=== PATIENT | female | born 1990 | race Caucasian/White ===

== ENCOUNTER 2016-05-17 17:12 | Emergency (ER) | payer OTHER, MEDICAID ==
--- NOTE | 2016-05-17 17:48 | EDPHY ---
H & P Time Seen by Provider: 05/17/16 17:26 HPI/ROS: CHIEF COMPLAINT: Abdominal pain HISTORY OF PRESENT ILLNESS: Patient is a 26-year-old female who presents to the emergency department with ongoing abdominal issues. Patient has been worked up with MRI and multiple visits. She subsequently had a scope by [facility] on Friday. Since that time she has had cramping. She initially had some slight rectal bleeding but this is improved. She was concerned because a regular medication was not resolving her cramping. She called the nurse advisor to come to the emergency department. Patient denies nausea or vomiting. She is mildly constipated with no diarrhea. No fevers or chills. No distension REVIEW OF SYSTEMS: My complete review of systems is negative except as mentioned in the HPI. Past Medical/Surgical History: Includes IBS, abdominal issues Past surgical history: Tonsillectomy, cholecystectomy Smoking Status: Never smoked Physical Exam: Vitals noted. Afebrile. 111/67, 66, 18, 36.6 GENERAL: Well-appearing, in no acute distress, alert. HEENT: Eyes normal to inspection, normal pharynx, no signs of dehydration. NECK: No thyromegaly, no lymphadenopathy, supple. RESPIRATORY: Clear to auscultation bilaterally, no rales, rhonchi or wheezing. CVS: Regular rate and rhythm, no rubs, murmurs, or gallops. ABDOMEN: Soft, nondistended, no organomegaly. Patient describes minimal mid abdominal tenderness palpation. No rebound or guarding BACK: Normal to inspection, no CVA tenderness. SKIN: Normal color, no rash, warm, dry. No pallor. EXTREMITIES: No pedal edema, no calf tenderness, no Homans sign or cords, no joint swelling. NEURO/PSYCH: Alert and oriented, normal mood and affect, normal motor sensory exam. Constitutional: Initial Vital Signs Temperature (C) 36.6 C 05/17/16 17:14 Heart Rate 66 05/17/16 17:14 Respiratory Rate 18 05/17/16 17:14 Blood Pressure 111/67 05/17/16 17:14 O2 Sat (%) 98 05/17/16 17:14 O2 Delivery Mode Room Air Allergies/Adverse Reactions: dicyclomine HCl [From Bentyl] Allergy (Severe, Verified 05/17/16 17:20) "throat closes up" milk Allergy (Severe, Verified 05/17/16 17:19) Anaphylaxis tetracycline Allergy (Intermediate, Verified 05/17/16 17:20) rash,vomiting emycin Allergy (Intermediate, Uncoded 05/17/16 17:20) rash,vomiting Home Medications: Medication Instructions Recorded EPINEPHRINE [EPIPEN] 0.3 mg IJ 05/17/16 Hydrocodone/APAP 5/325 [[place] 1 - 2 tab PO Q4 #13 tab 05/17/16 5/325 (RX)] Hyoscyamine 0.15 mg PO 05/17/16 Montelukast Sodium [Singulair 4 mg 4 mg PO 05/17/16 (*)] Veramist 05/17/16 Medical Decision Making ED Course/Re-evaluation: In the emergency department I discussed possible etiologies with the patient. I discussed diagnostic options. This included CT imaging and ultrasound. At this time I do not feel she has a perforation. She has normal vital signs and is afebrile. Her abdominal exam is normal. I discussed the possibility of other on suspected entities such as appendicitis or obstruction. She would prefer not having imaging at this time. I discussed warnings with her. She will return with worsening symptoms. Differential Diagnosis: My differential includes but is not limited to perforation, obstruction, colitis , appendicitis Departure - Departure Disposition: Home, Routine, Self-Care Clinical Impression: Abdominal pain Qualifiers: Abdominal location: generalized Qualified Code(s): R10.84 - Generalized abdominal pain Condition: Good Instructions: Abdominal Pain (ED) Additional Instructions: Follow-up with your physician Dr. Tee. Return with increasing pain, fever , vomiting or any other concerns. Referrals: NONE *PRIMARY CARE P,. [Primary Care Provider] - As per Instructions Dr. Randal [Other] - As per Instructions Prescriptions: Hydrocodone/APAP 5/325 [[place] 5/325 (RX)] 1 - 2 tab PO Q4 #13 tab
[2016-05-17 18:01] VITALS: BP 97/62; PULSE 65; RESP 20; TEMP 98.6; O2SAT 96
== END 2016-05-17 18:02 | disposition home or self-care (01) ==
DX: R10.84 Generalized abdominal pain (principal); Z90.49 Acquired absence of other specified parts of digestive tract

== ENCOUNTER 2017-02-07 09:46 | Emergency (ER) | payer MEDICAID, OTHER ==
[2017-02-07 10:00] VITALS: RESP 16; TEMP 97.5
[2017-02-07] MEDS ORDERED: ONDANSETRON DISINTEGRATING 4 MG TAB PO ONE (10:02)
[2017-02-07] MEDS ORDERED: NS 1,000 ML IV ONE (10:15)
[2017-02-07 10:22] LABS: % IMMATURE GRANULYOCYTES 0.3 % (0.0-1.1); ABSOLUTE IMMATURE GRANULOCYTES 0.05 10^3/uL (0.00-0.10); ADD DIFF? NO; ADD MORPH? NO; ADD SCAN? NO; ATYPICAL LYMPHOCYTE FLAG 0 (0-99); FRAGMENT RBC FLAG 0 (0-99); HEMATOCRIT 42.5 % (38.0-47.0); HEMOGLOBIN 15.1 g/dL (12.6-16.3); LEFT SHIFT FLG 0 (0-99); LIPEMIA HEMOLYSIS FLAG 90 (0-99); MEAN CELL HEMOGLOBIN 34.8 pg (27.9-34.1); MEAN CELL HEMOGLOBIN CONCENTR. 35.5 g/dL (32.4-36.7); MEAN CELL VOLUME 97.9 fL (81.5-99.8); MEAN PLATELET VOLUME 10.6 fL (8.7-11.7); PLATELET CLUMPS FLAG 0 (0-99); PLATELET COUNT 191 10^3/uL (150-400); RED BLOOD CELL COUNT 4.34 10^6/uL (4.18-5.33); RED CELL DISTRIBUTION WIDTH 11.5 % (11.5-15.2)
[2017-02-07 10:34] LABS: ANION GAP 20 mEq/L (8-16); CALCIUM 9.7 mg/dL (8.5-10.4); CARBON DIOXIDE 21 mEq/l (22-31); CHLORIDE 104 mEq/L (97-110); CREATININE 0.7 mg/dL (0.6-1.0); GLOMERULAR FILTRATION RATE > 60; GLUCOSE 82 mg/dL (70-100); POTASSIUM 3.7 mEq/L (3.5-5.2); SODIUM 145 mEq/L (134-144)
--- NOTE | 2017-02-07 10:36 | EDPHY ---
HPI/HX/ROS/PE/MDM Narrative: CHIEF COMPLAINT:Vomiting HPI: The patient is a 26-year-old female with a history of IBS and "abdominal issues." She reports drinking several sugary cocktails last night for Thanksgiving. She has a history of vomiting the morning after similar episodes. She tried eating a spoonful of sugar upon awakening this morning, which usually helps her, but this did not alleviate the nausea. She denies hematemesis, fever, abdominal pain. This is similar to other episodes she has had in the past. REVIEW OF SYSTEMS: Aside from elements discussed in the HPI, a comprehensive 10-point review of systems was reviewed and is negative. PMH: IBS, history of cholecystectomy SOCIAL HISTORY: Denies drug abuse. . PHYSICAL EXAM: General:Patient is alert, in no acute distress. ENT:Eyes are normal to inspection. ENT inspection normal. Neck: Normal inspection. Full range of motion. Respiratory:No respiratory distress. Breath sounds normal bilaterally. Cardiovascular: Regular rate and rhythm. Strong peripheral pulses. Normal cap refill. Abdomen:The abdomen is nontender to palpation. There are no peritoneal signs. There are normal bowel sounds. Back: Normal to inspection. No tenderness to palpation. Skin: Normal color. No rash. Warm and dry. Extremities: Normal appearance. Full range of motion. Neuro: Oriented x3. Normal motor function. Normal sensory function. MDM: This patient presents with nausea and vomiting without fever or abdominal pain, likely related to alcohol abuse last night. She was treated with zofran and IVNS and feels much better. Her abdomen remains benign. I think she is safe for discharge home. I see no signs of ovarian torsion, appendicitis, sepsis, GI bleed. - Data Points Laboratory Results: Laboratory Results 02/07/17 10:15 02/07/17 10:15 02/07/17 02/07/17 02/07/17 10:15 10:15 10:15 WBC 14.74 10^3/uL H 10^3/uL (3.80-9.50) RBC 4.34 10^6/uL 10^6/uL (4.18-5.33) Hgb 15.1 g/dL g/dL (12.6-16.3) Hct 42.5 % % (38.0-47.0) MCV 97.9 fL fL (81.5-99.8) MCH 34.8 pg H pg (27.9-34.1) MCHC 35.5 g/dL g/dL (32.4-36.7) RDW 11.5 % % (11.5-15.2) Plt Count 191 10^3/uL 10^3/uL (150-400) MPV 10.6 fL fL (8.7-11.7) Neut % (Auto) 91.5 % H % (39.3-74.2) Lymph % (Auto) 5.6 % L % (15.0-45.0) [place] % (Auto) 2.4 % L % (4.5-13.0) Eos % (Auto) 0.1 % L % (0.6-7.6) Baso % (Auto) 0.1 % L % (0.3-1.7) Nucleat RBC Rel Count 0.0 % % (0.0-0.2) Absolute Neuts (auto) 13.49 10^3/uL H 10^3/uL (1.70-6.50) Absolute Lymphs (auto) 0.82 10^3/uL L 10^3/uL (1.00-3.00) Absolute Monos (auto) 0.35 10^3/uL 10^3/uL (0.30-0.80) Absolute Eos (auto) 0.01 10^3/uL L 10^3/uL (0.03-0.40) Absolute Basos (auto) 0.02 10^3/uL 10^3/uL (0.02-0.10) Absolute Nucleated RBC 0.00 10^3/uL 10^3/uL (0-0.01) Immature Gran % 0.3 % % (0.0-1.1) Immature Gran # 0.05 10^3/uL 10^3/uL (0.00-0.10) Sodium 145 mEq/L H mEq/L (134-144) Potassium 3.7 mEq/L mEq/L (3.5-5.2) Chloride 104 mEq/L mEq/L (97-110) Carbon Dioxide 21 mEq/l L mEq/l (22-31) Anion Gap 20 mEq/L H mEq/L (8-16) BUN 15 mg/dL mg/dL (7-23) Creatinine 0.7 mg/dL mg/dL (0.6-1.0) Estimated GFR > 60 Glucose 82 mg/dL mg/dL (70-100) Calcium 9.7 mg/dL mg/dL (8.5-10.4) Beta HCG, Qual NEGATIVE Medications Given: Discontinued Medications Sodium Chloride (Ns) 1,000 mls @ 0 mls/hr IV EDNOW ONE; Wide Open PRN Reason: Protocol Stop: 02/07/17 10:16 Last Admin: 02/07/17 10:26 Dose: 1,000 mls Ondansetron HCl (Zofran Odt) 4 mg PO EDNOW ONE Stop: 02/07/17 10:03 Last Admin: 02/07/17 10:07 Dose: 4 mg General Time Seen by Provider: 02/07/17 10:06 Initial Vital Signs: Initial Vital Signs Temperature (C) 36.4 C 02/07/17 09:54 Heart Rate 90 02/07/17 09:54 Respiratory Rate 16 02/07/17 09:54 Blood Pressure 109/72 02/07/17 09:54 O2 Sat (%) 100 02/07/17 09:54 O2 Delivery Mode Room Air Allergies/Adverse Reactions: dicyclomine HCl [From Bentyl] Allergy (Severe, Verified 02/07/17 09:52) "throat closes up" milk Allergy (Severe, Verified 02/07/17 09:52) Anaphylaxis tetracycline Allergy (Intermediate, Verified 02/07/17 09:52) rash,vomiting emycin Allergy (Intermediate, Uncoded 02/07/17 09:52) rash,vomiting celiac Allergy (Uncoded 02/07/17 09:52) Home Medications: Medication Instructions Recorded EPINEPHRINE [EPIPEN] 0.3 mg IJ 05/17/16 Hyoscyamine 0.15 mg PO 05/17/16 Montelukast Sodium [Singulair 4 mg 4 mg PO 05/17/16 (*)] Veramist 05/17/16 Albuterol Hfa Anes Only [Proair 02/07/17 Hfa Icu (*)] Citalopram 02/07/17 Ondansetron Odt [Zofran Odt] 4 mg PO Q4PRN PRN #10 tab 02/07/17 Zofran Odt 02/07/17 Departure - Departure Disposition: Home, Routine, Self-Care Clinical Impression: Nausea & vomiting Condition: Good Instructions: Ondansetron (By mouth), Acute Nausea and Vomiting (ED) Additional Instructions: Follow-up with your primary doctor within 72 hours. Return to the Emergency Department for worsening pain, fever, severe vomiting, change in character or severity of pain or other worsening of condition. Referrals: Sondra Rivers MD [Primary Care Provider] - As per Instructions Prescriptions: Ondansetron Odt [Zofran Odt] 4 mg PO Q4PRN PRN #10 tab PRN Reason: Nausea
[2017-02-07 11:19] VITALS: BP 108/66; PULSE 83; O2SAT 99
== END 2017-02-07 11:17 | disposition home or self-care (01) ==
LOC: CED 09:46
DX: R11.2 Nausea with vomiting, unspecified (principal); E86.9 Volume depletion, unspecified
CPT/HCPCS: 80048-PO; 84703-PO; 85025-PO

== ENCOUNTER 2017-03-08 08:57 | Emergency (ER) | payer OTHER ==
[2017-03-08 09:14] VITALS: RESP 16; TEMP 98.6; O2SAT 97
[2017-03-08 10:31] LABS: PLATELET COUNT 209 10^3/uL (150-400)
[2017-03-08] MEDS ORDERED: HYOSCYAMINE SULFATE 0.125 MG TAB PO ONE (11:20)
--- NOTE | 2017-03-08 11:23 | EDPHY ---
H & P Time Seen by Provider: 03/08/17 09:30 HPI/ROS: This patient complains of a 12 day history of diarrhea with greater than 3 episodes of loose watery stools per day. She has seen at [facility] by Dr. Calvert - professor of geology with diagnosis of irritable bowel syndrome. She had a normal colonoscopy May 2016 as well as normal upper endoscopy October of 2013. She had normal comprehensive metabolic panel performed on 03/06 as an outpatient workup. She has not tried any specific medications for this current episode. She reported that she has had some relief from hyoscyamine in the past but does not have an active script for this medication at this time. She requests blood work to rule out acute infection. She is accompanied by her who drove her here by private vehicle for evaluation ROS: No fevers or chills. No other constitutional symptoms except some increased fatigue recently. HEENT: Mild seasonal allergies with coryza. No other complaints Pulmonary: No shortness of breath or cough Cardiovascular: No chest pain or heart palpitations GI: She has been drinking more fluids due to the diarrhea. She reports diffuse crampy abdominal pain that is intermittent currently mild but at times moderate. She denies any bloody stools or mucus in her stools. No nausea or vomiting. : Last menstrual. Normal timing 1125 the no vaginal discharge. No dysuria. Integumentary: No skin rash Endocrine: No complaints Complete review of symptoms is otherwise negative. 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 General Appearance: Alert, no distress. Eyes: Pupils equal and round no pallor or injection. ENT, Mouth: Mucous membranes moist. Respiratory: There are no retractions, lungs are clear to auscultation. Cardiovascular: Regular rate and rhythm. Gastrointestinal: Hyperactive bowel sounds, soft, mild diffuse tenderness with no guarding or rebound. No organomegaly. Back: No CVA tenderness Neurological: GCS 15 Skin: Warm and dry, no rashes. Musculoskeletal: Neck is supple nontender. Extremities are symmetrical, full range of motion. Psychiatric: Mood and affect normal DIFFERENTIAL DIAGNOSIS: After history and physical exam differential diagnosis was considered for IBS, metabolic disarray, UTI, , doubt appendicitis Constitutional: Initial Vital Signs Temperature (C) 37 C 03/08/17 09:07 Heart Rate 92 03/08/17 09:07 Respiratory Rate 16 03/08/17 09:07 Blood Pressure 119/76 03/08/17 09:07 O2 Sat (%) 97 03/08/17 09:07 O2 Delivery Mode Room Air Allergies/Adverse Reactions: dicyclomine HCl [From Bentyl] Allergy (Severe, Verified 02/07/17 09:52) "throat closes up" milk Allergy (Severe, Verified 02/07/17 09:52) Anaphylaxis tetracycline Allergy (Intermediate, Verified 02/07/17 09:52) rash,vomiting erythromycin base Allergy (Verified 03/08/17 09:15) celiac Allergy (Uncoded 02/07/17 09:52) Home Medications: Medication Instructions Recorded EPINEPHRINE [EPIPEN] 0.3 mg IJ PRN 05/17/16 Veramist 05/17/16 Albuterol Hfa Anes Only [Proair PRN 02/07/17 Hfa Icu (*)] Ondansetron Odt [Zofran Odt] 4 mg PO Q4PRN PRN #10 tab 02/07/17 HYOSCYAMINE SULFATE [LEVSIN-SL] 0.125 - 0.25 mg SL Q6 PRN #20 03/08/17 tab.subl Pnv 29-1 Tablet 03/08/17 MDM/Departure - MDM Diagnostics: CBC is normal. Basic metabolic panel normal, test normal, ESR normal Medications Given: Discontinued Medications Hyoscyamine Sulfate (Levsin, Hyomax-Sl) 0.125 mg PO EDNOW ONE Stop: 03/08/17 11:21 Last Admin: 03/08/17 11:40 Dose: 0.125 mg ED Course/Re-evaluation: Levsin sublingual with improvement in cramping Discussion: Patient has benign-appearing labs. Given lack of focality to her exam, hyperactive bowel sounds history of IBS think that her current symptoms are attributable again to IBS without evidence of acute abdomen or other concerning findings. I counseled regarding this. We did send a stool study as she provide a stool sample with pending results. The plan is for her to use hyoscyamine if needed for cramping discomfort and Imodium for diarrhea as needed with plan to follow up with her professor of geology. She understands need to return emergency department should she have any significant worsening of her symptoms despite the plan. I reviewed the patient's lab results answered her questions prior to her discharge. - Depart Disposition: Home, Routine, Self-Care Clinical Impression: Acute diarrhea, Generalized abdominal cramping Condition: Good Instructions: Acute Diarrhea (ED) Additional Instructions: Diagnosis: 1. Acute diarrhea 2. Generalized abdominal cramping Your CBC, ESR and basic metabolic panel are normal today. Also your test is negative. Plan: Drink plenty fluids with a light diet until you feel improved Levsin for cramping Imodium for diarrhea if needed Your stool study should be back within the next 24 hr or so. Follow up with GI physician for any ongoing symptoms Return for any significant worsening despite the treatment plan Prescriptions: HYOSCYAMINE SULFATE [LEVSIN-SL] 0.125 - 0.25 mg SL Q6 PRN #20 tab.subl PRN Reason: abd. cramping Referrals: NONE *PRIMARY CARE P,. [Primary Care Provider] - As per Instructions
[2017-03-08 11:43] VITALS: BP 111/68; PULSE 66
== END 2017-03-08 11:42 | disposition home or self-care (01) ==
LOC: CED 08:57
DX: R19.7 Diarrhea, unspecified (principal); R10.84 Generalized abdominal pain
CPT/HCPCS: 80048-PO; 84703-PO; 85025-PO; 85652-PO

== ENCOUNTER → 2017-07-22 | Outpatient (CLI) | payer OTHER | LOC: CIMAGING 09:02 | PROVIDERS: ATTEND Family Medicine | DX: M25.561 Pain in right knee (principal); M25.562 Pain in left knee | CPT/HCPCS: 73565-PO ==

== ENCOUNTER → 2017-07-25 | Outpatient (CLI) | payer OTHER | LOC: FIMAGING 17:55 | PROVIDERS: ATTEND Family Medicine | DX: M25.561 Pain in right knee (principal); M25.861 Other specified joint disorders, right knee ==

== ENCOUNTER → 2017-08-21 | Outpatient (CLI) | payer OTHER ==
[~2017-08-21] MED LIST: GADOBUTROL 10 ML VIAL IVP ONE
== END ==
LOC: FIMAGING 08:11
PROVIDERS: ATTEND Family Medicine
DX: M79.604 Pain in right leg (principal); F41.1 Generalized anxiety disorder
CPT/HCPCS: A9585

== ENCOUNTER 2018-04-11 17:23 | Observation (INO) | payer OTHER ==
[2018-04-11] MEDS ORDERED: ONDANSETRON 4 MG/2 ML VIAL IVP ONE ×2 (17:53→19:26)
[2018-04-11] MEDS ORDERED: NS 1,000 ML IV ONE (17:53)
--- NOTE | 2018-04-11 18:00 | EDPHY ---
H & P Stated Complaint: Nausea and vomiting for a day, per pt ?Gastro - Personal History LMP (Females 10-55): Current Tetanus/Diphtheria Vaccine: Yes Current Tetanus Diphtheria and Acellular Pertussis (TDAP): Yes Tetanus Vaccine Date: 2018 - Medical/Surgical History Hx Asthma: Yes Hx Chronic Respiratory Disease: No Hx Diabetes: No Hx Cardiac Disease: No Hx Renal Disease: No Hx Cirrhosis: No Hx Alcoholism: No Hx HIV/AIDS: No Hx Splenectomy or Spleen Trauma: No Other PMH: "abdominal issues" IBS,celiac,anxiety. Surg-davian,tonsils - Social History Smoking Status: Never smoked Time Seen by Provider: 04/11/18 17:44 HPI/ROS: CHIEF COMPLAINT: Intractable vomiting HISTORY OF PRESENT ILLNESS: 28-year-old female , EDC 06/02/2018, in the ER via private vehicle complaining of intractable nausea and vomiting since 2:30 a.m. Today with intermittent abdominal cramping. She is passing bowel movements and gas as normal with no diarrhea. She has prior history of remote cholecystectomy. No appendectomy history. No fever or chills. No flu-like symptoms. No vaginal bleeding or discharge. No urinary abnormality. No back or flank pain. No myalgias. PRIMARY CARE PROVIDER: [facility] REVIEW OF SYSTEMS: 10 systems reviewed and negative with the exception of the elements mentioned in the history of present illness PAST MEDICAL & SURGICAL HISTORY: , [facility] 06/02/2018 SOCIAL HISTORY: Nonsmoker PHYSICAL EXAM (Prior to examination, patient consented to physical exam, hands were washed and my usual and customary physical exam procedures followed) 1) GENERAL: Well-developed, well-nourished, alert and oriented. Appears to be in no acute distress. 2) HEAD: Normocephalic, atraumatic 3) HEENT: Pupils equal, round, reactive to light bilaterally. Sclera anicteric. Nasopharynx, oropharynx, clear, no lesions. Dry mucous membranes. 4) NECK: Full range of motion, no meningeal signs. 5) LUNGS: Clear auscultation bilaterally, no wheezes, no rhonchi, no retractions. 6) HEART: Regular rate and rhythm, no murmur, no heave, no gallop. 7) ABDOMEN: Gravid. No guarding, no rebound, no focal tenderness, negative McBurney's, negative Villareal's, negative Rovsing's, negative peritoneal sign, unable to elicit abdominal pain on exam 8) MUSCULOSKELETAL: Moving all extremities, no focal areas of tenderness, no obvious trauma. No peripheral edema or discoloration. 9) BACK: No CVA tenderness, no midline vertebral tenderness, no fluctuance, no step-off, no obvious trauma, no visual or palpable abnormality. 10) SKIN: No rash, no petechiae. 11) Psychiatric: Patient is oriented X 3, there is no agitation. DIFFERENTIAL DIAGNOSIS: In no particular order including but not limited to threatened , acute gastroenteritis, acute appendicitis (Chaka Jeff) Constitutional: Initial Vital Signs Temperature (C) 36.4 C 04/11/18 17:29 Heart Rate 93 04/11/18 17:29 Respiratory Rate 16 04/11/18 17:29 Blood Pressure 99/73 L 04/11/18 17:29 O2 Sat (%) 96 04/11/18 17:29 O2 Delivery Mode Room Air Allergies/Adverse Reactions: dicyclomine HCl [From Bentyl] Allergy (Severe, Verified 04/11/18 23:12) "throat closes up" grass pollen-perennial rye, standar Allergy (Severe, Verified 04/11/18 23:12) milk Allergy (Severe, Verified 04/11/18 23:12) Anaphylaxis tetracycline Allergy (Intermediate, Verified 04/11/18 23:12) rash,vomiting erythromycin base Allergy (Verified 04/11/18 23:12) celiac Allergy (Uncoded 02/07/17 09:52) Home Medications: Medication Instructions Recorded EPINEPHRINE [EPIPEN] 0.3 mg IJ PRN 05/17/16 Albuterol Hfa Anes Only [Proair PRN 02/07/17 Hfa Icu (*)] Dha 04/11/18 Vitamin B-6 04/11/18 Vitamin D3 04/11/18 Medical Decision Making - Diagnostics Imaging Results: Imaging Impressions Obstetrics Ultrasound 04/11/18 17:54 Impression: 1. Living torrez in vertex presentation. 2. By LMP the gestational age is 32 weeks 4 days. 3. Anterior placenta is normal in appearance. Findings discussed with Chaka Jeff PAC at 18:46 hour, 04/11/2018. Images reviewed myself (Chaka Jeff) ED Course/Re-evaluation: 5:10 p.m.: Care of patient under supervision of secondary supervising physician Dr Hagan with whom I discussed case. 7:27 p.m.: Patient previously passed p.o,. challenge however she is now actively vomiting again. 8:57 p.m.: Re-evaluation, no complaints of abdominal pain however continued nausea and vomiting. Recommended admission for hydration which patient is agreeable with. Doubt acute surgical abdominal pathology in absence of abdominal pain, nonfocal abdominal exam. 9:00 p.m.: Consultation Dr. Harleen Kent on-call OBGYN who agrees to admit patient (Chaka Jeff) Other Provider: The patient was evaluated and managed by the Physician Toddler Guide. I discussed the patient's presentation and course with the midlevel provider with them and agree with the evaluation. My co-signature indicates that I have reviewed this chart and I agree with the findings and plan of care as documented. I am the secondary supervising physician. (Echo Hagan) - Data Points Laboratory Results: Laboratory Results 04/11/18 18:09 04/11/18 18:09 04/11/18 04/11/18 04/11/18 19:37 18:09 18:09 WBC 13.53 10^3/uL H 10^3/uL (3.80-9.50) RBC 4.24 10^6/uL 10^6/uL (4.18-5.33) Hgb 14.7 g/dL g/dL (12.6-16.3) Hct 42.3 % % (38.0-47.0) MCV 99.8 fL fL (81.5-99.8) MCH 34.7 pg H pg (27.9-34.1) MCHC 34.8 g/dL g/dL (32.4-36.7) RDW 13.2 % % (11.5-15.2) Plt Count 152 10^3/uL 10^3/uL (150-400) MPV 10.7 fL fL (8.7-11.7) Neut % (Auto) 95.5 % H % (39.3-74.2) Lymph % (Auto) 2.1 % L % (15.0-45.0) [place] % (Auto) 1.9 % L % (4.5-13.0) Eos % (Auto) 0.2 % L % (0.6-7.6) Baso % (Auto) 0.1 % L % (0.3-1.7) Nucleat RBC Rel Count 0.0 % % (0.0-0.2) Absolute Neuts (auto) 12.92 10^3/uL H 10^3/uL (1.70-6.50) Absolute Lymphs (auto) 0.28 10^3/uL L 10^3/uL (1.00-3.00) Absolute Monos (auto) 0.26 10^3/uL L 10^3/uL (0.30-0.80) Absolute Eos (auto) 0.03 10^3/uL 10^3/uL (0.03-0.40) Absolute Basos (auto) 0.01 10^3/uL L 10^3/uL (0.02-0.10) Absolute Nucleated RBC 0.00 10^3/uL 10^3/uL (0-0.01) Immature Gran % 0.2 % % (0.0-1.1) Immature Gran # 0.03 10^3/uL 10^3/uL (0.00-0.10) Sodium 135 mEq/L mEq/L (135-145) Potassium 3.7 mEq/L mEq/L (3.5-5.2) Chloride 106 mEq/L mEq/L (97-110) Carbon Dioxide 20 mEq/l L mEq/l (22-31) Anion Gap 9 mEq/L mEq/L (6-14) BUN 10 mg/dL mg/dL (7-23) Creatinine 0.7 mg/dL mg/dL (0.6-1.0) Estimated GFR > 60 Glucose 79 mg/dL mg/dL (70-100) Calcium 8.8 mg/dL mg/dL (8.5-10.4) Total Bilirubin 0.9 mg/dL mg/dL (0.1-1.4) Conjugated Bilirubin 0.3 mg/dL mg/dL (0.0-0.5) Unconjugated Bilirubin 0.6 mg/dL mg/dL (0.0-1.1) AST 28 IU/L IU/L (14-46) ALT 36 IU/L IU/L (9-52) Alkaline Phosphatase 134 IU/L H IU/L (38-126) Total Protein 6.7 g/dL g/dL (6.3-8.2) Albumin 3.7 g/dL g/dL (3.5-5.0) Lipase 147 IU/L IU/L (23-300) Beta HCG, Quant 97818.00 mIU/mL H mIU/mL (0.00-4.83) Urine Color YELLOW Urine Appearance CLEAR Urine pH 5.0 (5.0-7.5) Ur Specific [place] 1.025 (1.002-1.030) Urine Protein NEGATIVE (NEGATIVE) Urine Ketones 2+ H (NEGATIVE) Urine Blood NEGATIVE (NEGATIVE) Urine Nitrate NEGATIVE (NEGATIVE) Urine Bilirubin NEGATIVE (NEGATIVE) Urine Urobilinogen NEGATIVE EU EU (0.2-1.0) Ur Leukocyte Esterase 1+ H (NEGATIVE) Urine RBC 1-3 /hpf /hpf (0-3) Urine WBC 5-10 /hpf H /hpf (0-3) Ur Epithelial Cells 1+ /lpf /lpf (NONE-1+) Urine Mucus 3+ /lpf H /lpf (NONE-1+) Urine Glucose NEGATIVE (NEGATIVE) Medications Given: Calcium Carbonate (Tums) 500 mg PO TID PRN PRN Reason: Indigestion Stop: 10/08/18 23:01 Last Admin: 04/11/18 23:13 Dose: 500 mg Lactated Ringer's (Lr) 1,000 mls @ 1,000 mls/hr IV BOLUS ONE Stop: 04/12/18 00:29 Last Admin: 04/11/18 23:13 Dose: 1,000 mls Dextrose/Lactated Ringer's (D5w Lr) 1,000 mls @ 125 mls/hr IV CONT ASHOK Stop: 10/08/18 23:14 Last Admin: 04/12/18 00:17 Dose: 1,000 mls Promethazine HCl (Phenergan) 12.5 mg IVP Q6HRS PRN PRN Reason: Nausea/Vomiting, Can't Take PO Stop: 10/08/18 23:01 Last Admin: 04/11/18 23:12 Dose: 12.5 mg Discontinued Medications Sodium Chloride (Ns) 1,000 mls @ 0 mls/hr IV ONCE ONE PRN Reason: Wide Open Stop: 04/11/18 17:54 Last Admin: 04/11/18 18:04 Dose: 1,000 mls Ondansetron HCl (Zofran) 4 mg IVP EDNOW ONE Stop: 04/11/18 17:54 Last Admin: 04/11/18 18:04 Dose: 4 mg Ondansetron HCl (Zofran) 4 mg IVP EDNOW ONE Stop: 04/11/18 19:27 Last Admin: 04/11/18 19:29 Dose: 4 mg Ranitidine HCl (Zantac) 50 mg IVP EDNOW ONE Stop: 04/11/18 21:28 Last Admin: 04/11/18 21:29 Dose: 50 mg Departure - Departure Disposition: [facility] Inpatient Acute Clinical Impression: Intractable nausea and vomiting Qualifiers: Vomiting type: unspecified Qualified Code(s): R11.2 - Nausea with vomiting, unspecified Qualifiers: Weeks of gestation: 32 weeks Qualified Code(s): Z3A.32 - 32 weeks gestation of Condition: Fair
[2018-04-11 18:45] LABS: PLATELET COUNT 152 10^3/uL (150-400)
[2018-04-11] MEDS ORDERED: ONDANSETRON 4 MG/2 ML VIAL ONE (19:27)
[2018-04-11] MEDS ORDERED: RANITIDINE 50 MG/2 ML VIAL IVP ONE (21:27)
[2018-04-11] MEDS ORDERED: RANITIDINE 50 MG/2 ML VIAL ONE (21:28)
[2018-04-11 21:34] VITALS: BP 112/78
--- NOTE | 2018-04-11 22:57 | PDGENHP ---
History and Physical - Chief Complaint N/V - History of Present Illness 28 G1 at 32w4d presented to ED with N/V since 0200. Despite 1 L of NS and 2 doses of Zofran, was still vomiting. Has not vomited now since about 1930. Does feel hungry. 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 NO fever. no VB no LOF, no chest pain, no dyspnea. With her celiac disease - usually has loose stool, but has had more firm stool today. Has not been voiding much volume. Good FM. Has not felt any contractions. course has been uncomplicated. care has been with [facility]. labs: 13.3/38.7 plt 193 A pos Ab sc neg RPR - NR Rub Imm HBsAG neg HIV neg UDS neg UA and Ucx neg pap neg GC/Chl neg AFP neg Innatal neg 28 wk: 12.6/37.4 1 hr GTT 70 History Information - Allergies/Home Medication List Allergies/Adverse Reactions: dicyclomine HCl [From Bentyl] Allergy (Severe, Verified 04/11/18 17:28) "throat closes up" milk Allergy (Severe, Verified 04/11/18 17:28) Anaphylaxis tetracycline Allergy (Intermediate, Verified 04/11/18 17:28) rash,vomiting erythromycin base Allergy (Verified 04/11/18 17:28) celiac Allergy (Uncoded 02/07/17 09:52) Home Medications: EPINEPHRINE [EPIPEN] 0.3 mg IJ PRN 05/17/16 [Last Taken Unknown] Albuterol Hfa Anes Only [Proair Hfa Icu (*)] PRN 02/07/17 [Last Taken Unknown] I have personally reviewed and updated: family history, medical history, social history, surgical history Past Medical History: Celiac disease - Past Medical History asthma Additional medical history: severe dairy allergy - has epipen - Surgical History Reports: cholecystectomy (2016) Additional surgical history: tonsillectomy 1993 - Family History Additional family history: nonpertinent - Social History Smoking Status: Never smoked Alcohol Use: None Drug Use: None 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 [employer] Review of Systems Review of Systems: ROS: 10pt was reviewed & negative except for what was stated in HPI & below Physical Exam Physical Exam: Temp Pulse Resp BP Pulse Ox 36.8 C 69 16 112/78 100 04/11/18 21:31 04/11/18 21:31 04/11/18 21:31 04/11/18 21:31 04/11/18 21:31 Constitutional: appears nourished (nontoxic, but does not appear well), not in pain Eyes: PERRL, anicteric sclera, EOMI Ears, Nose, Mouth, Throat: moist mucous membranes, hearing normal, ears appear normal Cardiovascular: regular rate and rhythym Respiratory: no respiratory distress, no rales or rhonchi, clear to auscultation Gastrointestinal: normoactive bowel sounds, other (fundus c/w third trimester, NT) Genitourinary: no bladder fullness Skin: warm, normal color Musculoskeletal: full muscle strength Neurologic: AAOx3 Psychiatric: interacting appropriately, not anxious Lab Data & Imaging Review 04/11/18 18:09 04/11/18 18:09 WBC 13.53 10^3/uL (3.80-9.50) H 04/11/18 18:09 RBC 4.24 10^6/uL (4.18-5.33) 04/11/18 18:09 Hgb 14.7 g/dL (12.6-16.3) 04/11/18 18:09 Hct 42.3 % (38.0-47.0) 04/11/18 18:09 MCV 99.8 fL (81.5-99.8) 04/11/18 18:09 MCH 34.7 pg (27.9-34.1) H 04/11/18 18:09 MCHC 34.8 g/dL (32.4-36.7) 04/11/18 18:09 RDW 13.2 % (11.5-15.2) 04/11/18 18:09 Plt Count 152 10^3/uL (150-400) 04/11/18 18:09 MPV 10.7 fL (8.7-11.7) 04/11/18 18:09 Neut % (Auto) 95.5 % (39.3-74.2) H 04/11/18 18:09 Lymph % (Auto) 2.1 % (15.0-45.0) L 04/11/18 18:09 [place] % (Auto) 1.9 % (4.5-13.0) L 04/11/18 18:09 Eos % (Auto) 0.2 % (0.6-7.6) L 04/11/18 18:09 Baso % (Auto) 0.1 % (0.3-1.7) L 04/11/18 18:09 Nucleat RBC Rel Count 0.0 % (0.0-0.2) 04/11/18 18:09 Absolute Neuts (auto) 12.92 10^3/uL (1.70-6.50) H 04/11/18 18:09 Absolute Lymphs (auto) 0.28 10^3/uL (1.00-3.00) L 04/11/18 18:09 Absolute Monos (auto) 0.26 10^3/uL (0.30-0.80) L 04/11/18 18:09 Absolute Eos (auto) 0.03 10^3/uL (0.03-0.40) 04/11/18 18:09 Absolute Basos (auto) 0.01 10^3/uL (0.02-0.10) L 04/11/18 18:09 Absolute Nucleated RBC 0.00 10^3/uL (0-0.01) 04/11/18 18:09 Immature Gran % 0.2 % (0.0-1.1) 04/11/18 18:09 Immature Gran # 0.03 10^3/uL (0.00-0.10) 04/11/18 18:09 Sodium 135 mEq/L (135-145) 04/11/18 18:09 Potassium 3.7 mEq/L (3.5-5.2) 04/11/18 18:09 Chloride 106 mEq/L (97-110) 04/11/18 18:09 Carbon Dioxide 20 mEq/l (22-31) L 04/11/18 18:09 Anion Gap 9 mEq/L (6-14) 04/11/18 18:09 BUN 10 mg/dL (7-23) 04/11/18 18:09 Creatinine 0.7 mg/dL (0.6-1.0) 04/11/18 18:09 Estimated GFR > 60 04/11/18 18:09 Glucose 79 mg/dL (70-100) 04/11/18 18:09 Calcium 8.8 mg/dL (8.5-10.4) 04/11/18 18:09 Total Bilirubin 0.9 mg/dL (0.1-1.4) 04/11/18 18:09 Conjugated Bilirubin 0.3 mg/dL (0.0-0.5) 04/11/18 18:09 Unconjugated Bilirubin 0.6 mg/dL (0.0-1.1) 04/11/18 18:09 AST 28 IU/L (14-46) 04/11/18 18:09 ALT 36 IU/L (9-52) 04/11/18 18:09 Alkaline Phosphatase 134 IU/L (38-126) H 04/11/18 18:09 Total Protein 6.7 g/dL (6.3-8.2) 04/11/18 18:09 Albumin 3.7 g/dL (3.5-5.0) 04/11/18 18:09 Lipase 147 IU/L (23-300) 04/11/18 18:09 Beta HCG, Quant 80932.00 mIU/mL (0.00-4.83) H 04/11/18 18:09 Urine Color YELLOW 04/11/18 19:37 Urine Appearance CLEAR 04/11/18 19:37 Urine pH 5.0 (5.0-7.5) 04/11/18 19:37 Ur Specific [place] 1.025 (1.002-1.030) 04/11/18 19:37 Urine Protein NEGATIVE (NEGATIVE) 04/11/18 19:37 Urine Ketones 2+ (NEGATIVE) H 04/11/18 19:37 Urine Blood NEGATIVE (NEGATIVE) 04/11/18 19:37 Urine Nitrate NEGATIVE (NEGATIVE) 04/11/18 19:37 Urine Bilirubin NEGATIVE (NEGATIVE) 04/11/18 19:37 Urine Urobilinogen NEGATIVE EU (0.2-1.0) 04/11/18 19:37 Ur Leukocyte Esterase 1+ (NEGATIVE) H 04/11/18 19:37 Urine RBC 1-3 /hpf (0-3) 04/11/18 19:37 Urine WBC 5-10 /hpf (0-3) H 04/11/18 19:37 Ur Epithelial Cells 1+ /lpf (NONE-1+) 04/11/18 19:37 Urine Mucus 3+ /lpf (NONE-1+) H 04/11/18 19:37 Urine Glucose NEGATIVE (NEGATIVE) 04/11/18 19:37 Assessment & Plan Assessment: 28 G1 at 32w4d with N/V - likely viral gastroenteritis NO electrolyte abnormalities. GERD symptoms not resolved with IV ranitidine UA confirms concentrated urine and ketosis. Intractable nausea and vomiting (Acute) (Acute) Will admit for IV hydration - will bolus an additional liter of IVF, will switch to LR, then will run D5LR at 125ml/hr after bolus completed. Tums prn. IV phenergan. Eugenia Wilburn CNM, given brief report and will round on pt in AM. Harleen Kent MD, [facility]OG [facility]
--- NOTE | 2018-04-11 23:00 | PDGENHP ---
History and Physical - Chief Complaint N/V - History of Present Illness History Information - Allergies/Home Medication List Allergies/Adverse Reactions: dicyclomine HCl [From Bentyl] Allergy (Severe, Verified 04/11/18 17:28) "throat closes up" milk Allergy (Severe, Verified 04/11/18 17:28) Anaphylaxis tetracycline Allergy (Intermediate, Verified 04/11/18 17:28) rash,vomiting erythromycin base Allergy (Verified 04/11/18 17:28) celiac Allergy (Uncoded 02/07/17 09:52) Home Medications: EPINEPHRINE [EPIPEN] 0.3 mg IJ PRN 05/17/16 [Last Taken Unknown] Albuterol Hfa Anes Only [Proair Hfa Icu (*)] PRN 02/07/17 [Last Taken Unknown] - Social History Smoking Status: Never smoked Review of Systems Review of Systems: Physical Exam Physical Exam: Temp Pulse Resp BP Pulse Ox 36.8 C 69 16 112/78 100 04/11/18 21:31 04/11/18 21:31 04/11/18 21:31 04/11/18 21:31 04/11/18 21:31 Lab Data & Imaging Review 04/11/18 18:09 04/11/18 18:09 WBC 13.53 10^3/uL (3.80-9.50) H 04/11/18 18:09 RBC 4.24 10^6/uL (4.18-5.33) 04/11/18 18:09 Hgb 14.7 g/dL (12.6-16.3) 04/11/18 18:09 Hct 42.3 % (38.0-47.0) 04/11/18 18:09 MCV 99.8 fL (81.5-99.8) 04/11/18 18:09 MCH 34.7 pg (27.9-34.1) H 04/11/18 18:09 MCHC 34.8 g/dL (32.4-36.7) 04/11/18 18:09 RDW 13.2 % (11.5-15.2) 04/11/18 18:09 Plt Count 152 10^3/uL (150-400) 04/11/18 18:09 MPV 10.7 fL (8.7-11.7) 04/11/18 18:09 Neut % (Auto) 95.5 % (39.3-74.2) H 04/11/18 18:09 Lymph % (Auto) 2.1 % (15.0-45.0) L 04/11/18 18:09 [place] % (Auto) 1.9 % (4.5-13.0) L 04/11/18 18:09 Eos % (Auto) 0.2 % (0.6-7.6) L 04/11/18 18:09 Baso % (Auto) 0.1 % (0.3-1.7) L 04/11/18 18:09 Nucleat RBC Rel Count 0.0 % (0.0-0.2) 04/11/18 18:09 Absolute Neuts (auto) 12.92 10^3/uL (1.70-6.50) H 04/11/18 18:09 Absolute Lymphs (auto) 0.28 10^3/uL (1.00-3.00) L 04/11/18 18:09 Absolute Monos (auto) 0.26 10^3/uL (0.30-0.80) L 04/11/18 18:09 Absolute Eos (auto) 0.03 10^3/uL (0.03-0.40) 04/11/18 18:09 Absolute Basos (auto) 0.01 10^3/uL (0.02-0.10) L 04/11/18 18:09 Absolute Nucleated RBC 0.00 10^3/uL (0-0.01) 04/11/18 18:09 Immature Gran % 0.2 % (0.0-1.1) 04/11/18 18:09 Immature Gran # 0.03 10^3/uL (0.00-0.10) 04/11/18 18:09 Sodium 135 mEq/L (135-145) 04/11/18 18:09 Potassium 3.7 mEq/L (3.5-5.2) 04/11/18 18:09 Chloride 106 mEq/L (97-110) 04/11/18 18:09 Carbon Dioxide 20 mEq/l (22-31) L 04/11/18 18:09 Anion Gap 9 mEq/L (6-14) 04/11/18 18:09 BUN 10 mg/dL (7-23) 04/11/18 18:09 Creatinine 0.7 mg/dL (0.6-1.0) 04/11/18 18:09 Estimated GFR > 60 04/11/18 18:09 Glucose 79 mg/dL (70-100) 04/11/18 18:09 Calcium 8.8 mg/dL (8.5-10.4) 04/11/18 18:09 Total Bilirubin 0.9 mg/dL (0.1-1.4) 04/11/18 18:09 Conjugated Bilirubin 0.3 mg/dL (0.0-0.5) 04/11/18 18:09 Unconjugated Bilirubin 0.6 mg/dL (0.0-1.1) 04/11/18 18:09 AST 28 IU/L (14-46) 04/11/18 18:09 ALT 36 IU/L (9-52) 04/11/18 18:09 Alkaline Phosphatase 134 IU/L (38-126) H 04/11/18 18:09 Total Protein 6.7 g/dL (6.3-8.2) 04/11/18 18:09 Albumin 3.7 g/dL (3.5-5.0) 04/11/18 18:09 Lipase 147 IU/L (23-300) 04/11/18 18:09 Beta HCG, Quant 33651.00 mIU/mL (0.00-4.83) H 04/11/18 18:09 Urine Color YELLOW 04/11/18 19:37 Urine Appearance CLEAR 04/11/18 19:37 Urine pH 5.0 (5.0-7.5) 04/11/18 19:37 Ur Specific [place] 1.025 (1.002-1.030) 04/11/18 19:37 Urine Protein NEGATIVE (NEGATIVE) 04/11/18 19:37 Urine Ketones 2+ (NEGATIVE) H 04/11/18 19:37 Urine Blood NEGATIVE (NEGATIVE) 04/11/18 19:37 Urine Nitrate NEGATIVE (NEGATIVE) 04/11/18 19:37 Urine Bilirubin NEGATIVE (NEGATIVE) 04/11/18 19:37 Urine Urobilinogen NEGATIVE EU (0.2-1.0) 04/11/18 19:37 Ur Leukocyte Esterase 1+ (NEGATIVE) H 01/26/19 19:37 Urine RBC 1-3 /hpf (0-3) 04/11/18 19:37 Urine WBC 5-10 /hpf (0-3) H 04/11/18 19:37 Ur Epithelial Cells 1+ /lpf (NONE-1+) 04/11/18 19:37 Urine Mucus 3+ /lpf (NONE-1+) H 04/11/18 19:37 Urine Glucose NEGATIVE (NEGATIVE) 04/11/18 19:37 Assessment & Plan Assessment: Intractable nausea and vomiting (Acute) (Acute)
[2018-04-11] MEDS ORDERED: PROMETHAZINE HCL 25 MG/ML INJ IVP PRN (23:02)
[2018-04-11] MEDS ORDERED: CALCIUM CARBONATE 500 MG CHEWABLE TAB PO PRN (23:02)
[2018-04-11] MEDS ORDERED: D5W LR 1,000 ML IV SCH (23:15)
[2018-04-11] MEDS ORDERED: LR 1,000 ML IV ONE (23:30)
--- NOTE | 2018-04-12 08:44 | PDDCSUM ---
Discharge Summary Discharge Summary: Care: [facility] HPI: Patient is a 28 yo with IUP@ 32-5 weeks that presents to L&D with complaints of nausea and vomiting for 24hours. She was admitted to L&D last night. She denies any vomiting since arrival. She states she is feeling better and desires d/c home at this time. She denies any OB complaints. She denies any contractions, LOF, VB. She reports +FM EDC: 06/02/18 which is based on LMP: 08/26/17 which is known and consistent with Ultrasound at 8 weeks. Her is complicated by: severe dairy allergy, celiac disease, asthma Review of Systems: Constitutional: Denies any fever, chills, or fatigue HEENT: denies any visual changes, difficulty swallowing, hearing loss Cardiovascular: Denies any chest pain, palpitations, leg swelling Respiratory: denies any cough, wheezing, or shortness of breathe GI: Denies any diarrhea, constipation, reports + vomiting and nausea : denies any dysuria, urgency, frequency, vaginal bleeding Musculoskeletal: denies any muscle or bone pain Skin: denies any rashes Neuro: denies any headache, seizures, lightheadedness, dizziness, or loss of consciousness Psychiatric: denies any depression, anxiety, or SI/HI thoughts HISTORY: Previous OB history: G1 Past medical history: dairy allergy and celiac disease, asthma Past surgical history: cholecystectomy, tonsillectomy Social: Denies any alcohol, tobacco, or drug use. Family history: Not relevant Medications: PNV, claritin, DHA Allergies (list reaction): Emycin, bentyl, gluten LABS: Rh: A+ ABS: Neg Rubella: Immune HbsAg: NR HIV: NR VDRL: NR 1hr: 70 GC: Neg Chlamydia: Neg Pap: Normal GBS: unknown BMI: (prepreg) 21 PHYSICAL EXAM: Constitutional: WN, A&Ox3 HEENT: normocephalic atraumatic, supple Skin: Warm, dry, intact Heart: RRR, no murmur Chest: CTA-B Abdomen: Soft, nontender, gravid SVE: deferred Extremities: no edema, negative homans sign Neuro: grossly normal Psych: normal affect assessment: FHT baseline 145 +accels, no decels, moderate variability Contractions: toco irritability noted Assessment: 1) [id number] with IUP@ 32-5wks 2) no evidence of labor 3) likely Gastroenteritis 4) Cat 1 FHR tracing Plan: 1) discharge pt home at this time 2) bland diet 3) increase PO fluids 4) keep next sched OB appt Today's visit was approximately 90 min, of which >50% of visit 50 min, was spent face to face with pt on direct counseling/coordination of care.
== END 2018-04-12 09:45 | disposition home or self-care (01) ==
LOC: FLD 21:40
PROVIDERS: ADMIT Hospitalist; ATTEND Hospitalist
DX: O21.9 Vomiting of pregnancy, unspecified (principal); O99.613 Diseases of the digestive system complicating pregnancy, third trimester; E86.0 Dehydration; K90.0 Celiac disease; Z91.011 Allergy to milk products; Z3A.32 32 weeks gestation of pregnancy
CPT/HCPCS: 59025; 76815; 96361; 96374; 96375; 96376; 99285; G0378; J2405; J2550; J2780

== ENCOUNTER 2018-05-30 04:41 | Inpatient (IN) | payer OTHER ==
[2018-05-30] MEDS ORDERED: MISOPROSTOL 200 MCG TAB ONE (04:54)
[2018-05-30] MEDS ORDERED: OLIVE OIL 118 ML BTL MISC ONE (04:54)
[2018-05-30] MEDS ORDERED: TERBUTALINE SULFATE 1 MG/ML VIAL ONE (04:54)
[2018-05-30] MEDS ORDERED: AMMONIA AROMATIC 1 EACH AMP IH ONE (04:54)
[2018-05-30] MEDS ORDERED: OXYTOCIN 10 UNIT/ML VIAL ONE (04:54)
[2018-05-30] MEDS ORDERED: LIDOCAINE 1% 300 MG/30 ML SDV ONE (04:54)
[2018-05-30] MEDS ORDERED: OXYTOCIN/RINGERS LACTATE 1,000 ML IV PRN (04:55)
[2018-05-30] MEDS ORDERED: OLIVE OIL 118 ML BTL MISC PRN (04:55)
[2018-05-30] MEDS ORDERED: IBUPROFEN 600 MG TAB PO PRN ×2 (04:55→09:56)
[2018-05-30] MEDS ORDERED: LIDOCAINE 1% 300 MG/30 ML SDV SC PRN (04:55)
[2018-05-30] MEDS ORDERED: EPSOM SALT 454 GM TP PRN (04:55)
[2018-05-30] MEDS ORDERED: LR 1,000 ML IV PRN (04:55)
[2018-05-30] MEDS ORDERED: MISOPROSTOL 200 MCG TAB PR PRN (04:55)
--- NOTE | 2018-05-30 05:41 | PDGENHP ---
History and Physical History and Physical: CARE: [facility] HPI: Patient is a 28 yo G 1 P 0 @ 39.5 weeks that presents to L&D with complaints of strong uterine contractions since 299. EDC: 06/02/18 which is based on LMP: 08/26/17 which is known and consistent with Ultrasound at 8 weeks. Her is complicated by: no complications Review of Systems: Constitutional: Denies any fever, chills, or fatigue HEENT: denies any visual changes, difficulty swallowing, hearing loss Cardiovascular: Denies any chest pain, palpitations, leg swelling Respiratory: denies any cough, wheezing, or shortness of breathe GI: Denies any nausea, vomiting, diarrhea, constipation : denies any dysuria, urgency, frequency, vaginal bleeding Musculoskeletal: denies any muscle or bone pain Skin: denies any rashes Neuro: denies any headache, seizures, lightheadedness, dizziness, or loss of consciousness Psychiatric: denies any depression, anxiety, or SI/HI thoughts HISTORY: Previous OB history: nullip Social history: , employed [employer] Family history: non-contributory Past medical history: celiac, severe dairy allergy Past surgical history: tonsillectomy, cholecystectomy Medications: PNV claritin, DHA Allergies (list reaction): erythromycin, bentyl, gluten , dairy LABS: Rh: A+ ABS: Neg Rubella: Immune HbsAg: NR HIV: NR VDRL: NR 1hr: 70 GC: Neg Chlamydia: Neg Pap: Normal GBS: neg BMI: (prepreg) =21 PHYSICAL EXAM: Constitutional: WN, A&Ox3 HEENT: normocephalic atraumatic, supple Heart: RRR, no murmur Chest: CTA-B Skin: warm, dry, intact Abdomen: Soft, nontender, gravid SVE: 9/100/0 per RN on admission Extremities: no edema, negative homans sign Neuro: grossly normal Psych: normal affect assessment: FHT baseline 125 +accels, no decels, moderate variability Contractions: toco q 3 min Assessment: 1) 28 yo G 1 P 0 with IUP@ 39 weeks 5 days 2) active labor 3) GBS neg 4) Cat 1 FHR tracing Plan: 1) Admit to L&D 2) anticipate
--- NOTE | 2018-05-30 09:55 | OBDEL ---
Info Type: Vaginal Presentation at Delivery: Vertex L&D Analgesia/Anesthesia Type: Nitrous GBS+: No Intrapartum Medications: Discontinued Medications Generic Name Dose Route Start Last Admin Trade Name Wander PRN Reason Stop Dose Admin Misoprostol 800 - 1,000 mcg 05/30/18 04:55 05/30/18 09:08 Cytotec MS 1,000 mcg ONCE PRN Administration Vaginal Atony/Bleeding - Hospital Course Intrapartum: 05/30/18 09:52 mom progressed well in labor and used nitrous and position changes for comfort Indications for Delivery: Spontaneous Labor Vaginal Delivery - Labor and Delivery Onset of Contractions Date: 05/30/18 Onset of Contractions Time: 03:00 Onset of Contractions Type: Spontaneous Rupture of Membranes Date: 05/30/18 Rupture of Membranes Time: 05:43 Rupture of Membranes Type: Spontaneous Amniotic Fluid Color: Clear Dilation Complete Date: 05/30/18 Dilation Complete Time: 05:00 Placenta Delivery Date: 05/30/18 Placenta Delivery Time: 08:55 Total Hours of Labor: 5 Laceration: 2nd Degree Repair: 2-0, 3-0, Vicryl, Chromic Vaginal Sponge Count Correct: Yes Vaginal Needle Count Correct: Yes Vaginal Sweep Performed: Yes EBL: 400 Delivery Events: None Delivery Comment: infant delivered in RAKESH over intact perineum, shoulders and body followed atraumatically with maternal pushing effort. Data SOLEDAD: 06/02/18 Gestational Age: 39 week(s) and 4 day(s) [place] Delivery Date: 05/30/18 Delivery Time: 08:26 Sex of : Female Score (1 Min): 8 Score (5 Min): 9 ICD10 Worksheet Patient Problems: Problems Problem Status Onset Intractable nausea and vomiting Acute Acute
[2018-05-30] MEDS ORDERED: HYDROCORTISONE 0.5% CREAM TP PRN (09:56)
[2018-05-30] MEDS ORDERED: ACETAMINOPHEN 325 MG TAB PO PRN (09:56)
[2018-05-30] MEDS: ACETAMINOPHEN 500 MG TAB PO PRN ×3 (10:22→22:28)
[2018-05-30 11:19] LABS: PLATELET COUNT 157 10^3/uL (150-400)
[2018-05-30] MEDS: IBUPROFEN 200 MG TAB PO PRN ×2 (16:10→22:28)
[2018-05-30] MEDS: DOCUSATE SODIUM 100 MG CAP PO PRN ×2 (16:10→22:29)
[2018-05-31] MEDS: ACETAMINOPHEN 500 MG TAB PO PRN ×3 (05:47→19:48)
[2018-05-31] MEDS: IBUPROFEN 200 MG TAB PO PRN ×3 (05:47→19:49)
[2018-05-31] MEDS: DOCUSATE SODIUM 100 MG CAP PO PRN ×2 (11:16→20:44)
--- NOTE | 2018-05-31 13:02 | OBPP ---
Progress Note Assessment/Plan: Assessment: first PP day Plan: support d/c home tomorrow 05/31/18 13:18 Subjective/ Course: 05/31/18 13:19 vss, fundus firm at U, bleeding wnl Objective: 05/31/18 01:15 Patient ABO/Rh A POSITIVE 05/30/18 08:26 Temp Pulse Resp BP Pulse Ox 36.6 C 84 16 113/76 98 05/30/18 20:00 05/30/18 20:00 05/30/18 20:00 05/30/18 20:00 05/30/18 20:00 Uterine Position/Fundal Height: At Umbilicus Uterine Tone: Firm
[2018-05-31] MEDS: FERRO-SEQUELS 65 MG TAB.ER PO SCH ×2 (15:22→20:44)
[2018-05-31] MEDS ORDERED: CALCIUM CARBONATE 500 MG CHEWABLE TAB PO PRN (17:20)
[2018-06-01] MEDS: IBUPROFEN 200 MG TAB PO PRN ×2 (01:49→08:28)
[2018-06-01] MEDS: ACETAMINOPHEN 500 MG TAB PO PRN ×2 (01:49→08:25)
[2018-06-01] MEDS: FERRO-SEQUELS 65 MG TAB.ER PO SCH (08:24)
[2018-06-01] MEDS: DOCUSATE SODIUM 100 MG CAP PO PRN (08:32)
[2018-06-01 08:37] VITALS: BP 106/69
--- NOTE | 2018-06-01 11:50 | OBGCSDC ---
General Delivery Information - General Info : 1 Para: 1 Abortions: 0 Type: Vaginal L&D Analgesia/Anesthesia Type: None Admission Date: 05/30/18 Labs: Patient ABO/Rh A POSITIVE 05/30/18 08:26 Hct 30.9 % (38.0-47.0) L 05/31/18 01:15 - Hospital Course Intrapartum: 05/30/18 09:52 mom progressed well in labor and used nitrous and position changes for comfort : 05/31/18 13:19 vss, fundus firm at U, bleeding wnl 06/01/18 11:49 S) Pt doing well, reports min pain and bleeding. she is ambulating and voiding without difficulty. She is . She desires discharge home today. O) VSS, afebrile constitutional: WNF, A&Ox3 HEENT: normocephalic, atraumatic, supple Heart: RRR, No murmur Chest: CTA-B Breasts: soft, nontender, not engorged, nipples normal/intact Abdomen: Soft, nontender Uterus: Firm at U-2 Lochia: Minimal rubra Perineum: Intact, healing well Extremities: Trace edema, and negative Charles's sign Neuro: Grossly normal A) 28-year-old S/P PPD#2 P) Discharge home today Continue Pelvic rest x6wks Discussed danger signs (infection, preeclampsia, depression, heavy bleeding, etc ) RTO in 2/4/6 weeks Vaginal - Diagnosis Labor: Spontaneous Rupture of Membranes Type: Spontaneous Amniotic Fluid Color: Clear Laceration: 2nd Degree Repair: 2-0, 3-0, Vicryl, Chromic Delivery Events: None - Delivery EBL: 400 Data SOLEDAD: 06/02/18 Gestational Age: 39 week(s) and 6 day(s) [place] Delivery Date: 05/30/18 Delivery Time: 08:26 Sex of Infant: Female Score (1 Min): 8 Score (5 Min): 9
== END 2018-06-01 13:30 | disposition home or self-care (01) | DRG 807 ==
LOC: OBSVTOIN 04:41 → FLD 04:41 → FOB 12:15
PROVIDERS: ADMIT Advanced Practice Midwife; ATTEND Advanced Practice Midwife
PROC: 0KQM0ZZ Repair Perineum Muscle, Open Approach (ICD-10-PCS; principal; 2018-05-30)
PROC: 10E0XZZ Delivery of Products of Conception, External Approach (ICD-10-PCS; principal; 2018-05-30)
DX: O70.1 Second degree perineal laceration during delivery (principal); Z3A.39 39 weeks gestation of pregnancy; Z37.0 Single live birth
CPT/HCPCS: J2590; J3105